=== PATIENT | female | born 1955 | race Two or more races ===

== ENCOUNTER 2017-04-19 18:17 | Emergency (ER) | payer SELFPAY ==
[~2017-04-19] VITALS: Ht 160 cm; Wt 62.9 kg
[2017-04-19 21:56] LABS: BASOPHILS % 0.3 % (0.0-2.0); EOSINOPHILS % 1.7 % (0.0-5.0); HEMATOCRIT. 30.2 % (36.0-48.0); HEMOGLOBIN. 10.3 g/dL (12.0-16.0); LYMPHOCYTES % 27.5 % (20.0-50.0); MEAN CORPUSCULAR HEMOGLOBIN 31.3 pg (28.0-32.0); MEAN CORPUSCULAR VOLUME 91.6 fL (81.0-99.0); MEAN PLATELET VOLUME 8.5 fl (7.4-10.4); MONOCYTES % 5.5 % (2.0-8.0); PLATELET 296 x1000/uL (130-400); RED CELL DISTRIBUTION WIDTH 13.9 % (11.6-14.6)
[2017-04-19 22:01] LABS: PARTIAL THROMBOPLASTIN TIME 26.6 sec (24.0-34.0); PROTHROMBIN TIME 10.3 sec
[2017-04-19 22:02] LABS: CARBON DIOXIDE 29 mEq/L (21-32); CHLORIDE 106 mEq/L (98-107)
[2017-04-19 22:56] VITALS: BP 123/72
== END 2017-04-19 22:57 | disposition home or self-care (01) ==
LOC: ER 20:26
DX: R04.0 Epistaxis (principal); E86.0 Dehydration
CPT/HCPCS: 36415; 80053; 85025; 85610; 85730; 99284; Z7610